=== PATIENT | male | born 2000 | race Caucasian/White ===

== ENCOUNTER 2021-01-19 08:45 | Outpatient (CLI) | payer MEDICAID, SELFPAY ==
[2021-01-20 15:40] LABS: COVID-19 RT-PCR UVMMC Result Positive (Negative)
== END 2021-01-19 08:46 | disposition home or self-care (01) ==
LOC: LBO 08:45
PROVIDERS: PCP Nurse Practitioner; Visit Provider Nurse Practitioner
DX: Z20.822 Contact with and (suspected) exposure to COVID-19 (principal)
CPT/HCPCS: U0003

== ENCOUNTER 2021-02-08 03:35 | Outpatient (CLI) | payer MEDICAID, SELFPAY ==
[2021-02-08 12:39] LABS: Hemoglobin A1C 5.1 % (<5.7)
[2021-02-08 12:43] LABS: Calculated LDL 43 mg/dL (<100); Cholesterol 96 mg/dL (<200); HDL Cholesterol 45 mg/dL (40-60); Triglyceride 44 mg/dL (<150)
== END 2021-02-08 03:36 | disposition home or self-care (01) ==
LOC: LOS 03:36
PROVIDERS: PCP Nurse Practitioner; Visit Provider Nurse Practitioner
DX: Z13.1 Encounter for screening for diabetes mellitus (principal); Z13.6 Encounter for screening for cardiovascular disorders
CPT/HCPCS: 36415; 80061; 83036

== ENCOUNTER 2023-08-24 15:48 | Outpatient (REF) | payer MEDICAID, SELFPAY | END 2023-08-24 15:49 | disposition home or self-care (01) | LOC: LBN 15:48 | PROVIDERS: PCP Nurse Practitioner Family; Visit Provider Physician Assistant | DX: J02.9 Acute pharyngitis, unspecified (principal) | CPT/HCPCS: 87070 ==